=== PATIENT | male | born 1990 | race Two or more races ===

== ENCOUNTER 2017-04-25 13:21 | Emergency (ER) | payer MEDICAID, OTHER ==
[~2017-04-25] VITALS: Ht 167.6 cm; Wt 70.5 kg
[~2017-04-25 13:21] MED LIST: NOCURR
[2017-04-25 13:43] VITALS: BP 106/69
== END 2017-04-25 16:41 | disposition home or self-care (01) ==
LOC: EMS 13:23
DX: J40 Bronchitis, not specified as acute or chronic (principal)
CPT/HCPCS: 71101; 99284

== ENCOUNTER 2024-12-21 14:30 | Emergency (ER) | payer OTHER ==
[~2024-12-21] VITALS: Ht 167.6 cm; Wt 71.0 kg
[2024-12-21 15:03] VITALS: TEMP 98.6
[2024-12-21] MEDS: LIDOCAINE 1% 10 ML VIAL SQ ONE (15:09)
[2024-12-21 15:43] LABS: CALCIUM, TOTAL 9.0 mg/dL (8.8-10.5); CREATININE 0.94 mg/dL (0.60-1.30); GLOMERULAR FILTR. RATE CALC > 60 mL/min (>60); GLUCOSE,RANDOM 96 mg/dL (70-110); SODIUM SERUM 137 mmol/L (136-145); UREA NITROGEN, BLOOD 14 mg/dL (7-18)
[2024-12-21 15:45] LABS: PLATELET COUNT (AUTO) 334 K/uL (150-450); RED BLOOD CELL COUNT(AUTO) 5.02 MIL/uL (4.50-5.90); RED CELL DISTRIBUTION WIDTH 12.8 % (11.5-14.5); WHITE BLOOD COUNT (AUTO) 12.1 K/uL (4.5-11.0)
[2024-12-21 15:53] LABS: LACTIC ACID 1.3 mmol/L (0.4-2.0)
[2024-12-21] MEDS: CLINDAMYCIN PHOS 150 MG/ML 4 ML VIAL IM ONE (16:44)
[2024-12-21 16:56] VITALS: BP 148/82; PULSE 78; RESP 18; O2SAT 98
== END 2024-12-21 18:36 ==
LOC: EMS 14:31
DX: L02.611 Cutaneous abscess of right foot (principal); L03.115 Cellulitis of right lower limb
CPT/HCPCS: 99283; 10060; 80048; 83605; 85025; 36415; 96372; J3490